=== PATIENT | female | born 1970 | race Caucasian/White ===

== ENCOUNTER 2023-04-14 17:23 | Emergency (ER) | payer MEDICAID, OTHER ==
[~2023-04-14] VITALS: Ht 172.7 cm; Wt 112.0 kg
[2023-04-14 17:27] VITALS: BP 142/68; O2SAT 100
[2023-04-14 20:46] LABS: BASOPHILS % 0.3 % (0.0-2.0); EOSINOPHILS % 1.3 % (0.0-5.0); HEMATOCRIT. 36.3 % (36.0-48.0); HEMOGLOBIN. 12.3 g/dL (12.0-16.0); LYMPHOCYTES % 13.6 % (20.0-50.0); MEAN CORPUSCULAR HEMOGLOBIN 29.2 pg (28.0-32.0); MEAN CORPUSCULAR VOLUME 85.9 fL (81.0-99.0); NEUTROPHILS % 76.8 % (40.0-76.0); PLATELET 190 x1000/uL (130-400); RED BLOOD CELL COUNT 4.23 mill/uL (4.2-5.4); RED CELL DISTRIBUTION WIDTH 13.5 % (11.6-14.6); WHITE BLOOD COUNT 5.9 x1000/uL (4.5-11.0)
[2023-04-14 20:54] LABS: CALCIUM 8.6 mg/dL (8.5-10.1); CHLORIDE 107 mEq/L (98-107); INDEX HEMOLYSI 1 (1-3); INDEX ICTERIC 1 (1-4); INDEX LIPEMIC 1 (1-3); POTASSIUM 3.6 mEq/L (3.5-5.1); SODIUM 135 mEq/L (136-145)
[2023-04-14] MEDS ORDERED: CEPH500C2 MT (20:56)
[2023-04-14] MEDS ORDERED: ACET-2708 MT (20:56)
[2023-04-14 20:58] LABS: CARBON DIOXIDE 29 mEq/L (21-32); CREATININE 0.7 mg/dL (0.6-1.3); GLUCOSE 97 mg/dL (70-105); UREA NITROGEN BLOOD 9 mg/dL (7-21)
[2023-04-14] MEDS ORDERED: CEPHALEXIN 250MG CAPSULE PO ONE (21:00)
[2023-04-14 21:40] VITALS: PULSE 80; RESP 16; TEMP 98.6
== END 2023-04-14 21:40 | disposition home or self-care (01) ==
LOC: ER 17:23
DX: L03.115 Cellulitis of right lower limb (principal); Z13.9 Encounter for screening, unspecified; Z86.59 Personal history of other mental and behavioral disorders
CPT/HCPCS: 36415; 80048; 85025; 93971; 99284